=== PATIENT | female | born 1960 | race Caucasian/White ===

== ENCOUNTER 2016-06-02 20:01 | Emergency (ER) | payer BC ==
[2016-06-02] MEDS ORDERED: PROMETHAZINE HCL 25 MG in DEXTROSE 5 % IN WATER 50 ML IV ONE ×2 (20:23)
[2016-06-02] MEDS ORDERED: NORMAL SALINE 1,000 ML IV ONE (20:23)
--- NOTE | 2016-06-02 20:28 | ERNOTE ---
Medical Problem HPI - General Chief Complaint: Nausea/Vomiting Time Seen by Provider: 06/02/16 20:13 Source: patient Exam Limitations: no limitations - Immun/Allergies/Home Medications Immunizations: IMMUNIZATION HX Immunizations Up to Date Yes History of Influenza Vaccine No Hx Pneumococcal Vaccination No Allergies/Adverse Reactions: Allergies No Known Allergies Allergy (Unverified 06/02/16 20:05) Home Medications: HOME MEDICATIONS Lisinopril [Zestril] 10 mg PO DAILY 06/02/16 [Last Taken Unknown] Venlafaxine HCl [Effexor] 75 mg PO DAILY 06/02/16 [Last Taken Unknown] - History of Present History Narrative: Patient started with nausea and vomiting yesterday am, has vomited about five times a day, every time she tries to eat or drink, last about an hours ago. She denies any abdominal pain, no diarrhea, no known sick contacts, but there is a lot of vomiting going through town. Date (Duration): 06/01/16 Review of Systems - Review of Systems Constitutional: Absent: recent illness, fever ENT: Present: nose congestion. Absent: nasal drainage, sore throat Respiratory: Absent: shortness of breath Cardiology: Absent: chest pain Gastrointestinal/Abdominal: Present: See HPI, nausea, vomiting. Absent: diarrhea, abdominal pain Skin: Absent: rash Neurological: Absent: headache - Patient's Past Medical History Patient History - Medical: Anxiety, Depression Patient History - Cancer: Melanoma Patient History - Surgical Procedures: Cancer Surgery, Cholecystectomy, Hysterectomy, T & A - Social History Living Situations: home Smoking Status: Former smoker Alcohol Use: none Drug Use: none Physical Exam - Physical Exam General Appearance: Present: wd/wn, alert, no apparent distress Eye Exam: Normal inspection: bilateral, PERRL: bilateral Ears, Nose, Throat: Present: nasal congestion, normal pharynx Neck: Present: normal inspection, nontender Respiratory: Present: no respiratory distress, normal breath sounds, no accessory muscle use, lungs clear Cardiovascular/Chest: Present: regular rate, rhythm, no murmur Gastrointestinal/Abdominal: Present: normal bowel sounds, nontender, nondistended, soft Neurological Exam: Present: alert, oriented, normal mood/affect Skin Exam: Present: normal color, warm/dry ED Progress - Vital Signs Patient's Vital Signs:: I have reviewed the patient's vital signs. Vital Signs: Vital Signs 06/02/16 20:06 Temperature 36.5 C Pulse Rate 82 Respiratory 16 Rate Blood Pressure 127/70 O2 Sat by Pulse 97 Oximetry - Progress/Reassessment Chief Complaint: Nausea/Vomiting Progress Note-Subjective: 06/02/16 21:24 nausea better after phenergan, would like to try ice chips 06/02/16 21:52 tolerated ice chips, feeling better, would like to go home Departure - Departure Clinical Impression: Gastroenteritis and colitis, viral Disposition: Home self-care Condition: Good Instructions: Viral Gastroenteritis, Adult, [id number] Additional Instructions: follow up with your doctor if not better in 1-2 days
[2016-06-02] MEDS ORDERED: PROMETHAZINE HCL 12.5 MG SUPP.RECT RC ONE (21:51)
[2016-06-02] MEDS ORDERED: PROMETHAZINE HCL 25 MG SUPP.RECT RC ONE (21:58)
[2016-06-02 22:16] VITALS: BP 134/69
== END 2016-06-02 21:55 | disposition home or self-care (01) ==
LOC: ER 20:01
DX: A08.4 Viral intestinal infection, unspecified (principal); Z87.891 Personal history of nicotine dependence; Z90.49 Acquired absence of other specified parts of digestive tract; Z90.710 Acquired absence of both cervix and uterus; Z85.820 Personal history of malignant melanoma of skin; F32.9 Major depressive disorder, single episode, unspecified; F41.1 Generalized anxiety disorder